=== PATIENT | female | born 1970 | race Two or more races ===

== ENCOUNTER 2021-03-28 20:42 | Emergency (ER) | payer SELFPAY ==
[~2021-03-28] VITALS: Ht 170.2 cm; Wt 68.0 kg
[2021-03-28 21:28] VITALS: BP 111/60
--- NOTE | 2021-03-28 21:30 | NUR ---
BIBRA 88 C/O OF LOW BP, DIZZY FOR PAST 2 HOURS PT IS AA/O X4 V/S CHECKED AND RECORDED, HOOKED TO MONITOR AND SPOX WILL CONT TO MONITOR
--- NOTE | 2021-03-28 22:27 | NUR ---
Patient does not wish to proceed with medical care recommended by Dr. CHOUDHURY. Patient given information related to possible complications, up to and including , which could occur as a result of leaving the hospital at this time. Patient verbalizes understanding of risks involved due to leaving against medical advice. Patient has signed AMA form.
== END 2021-03-28 22:28 | disposition left against medical advice (07) ==
LOC: ER 20:58
DX: Z53.21 Procedure and treatment not carried out due to patient leaving prior to being seen by health care provider (principal)